=== PATIENT | male | born 1985 | race African-American/Black ===

== ENCOUNTER 2020-08-29 23:00 | Observation (INO) | payer BC ==
[2020-08-29] MEDS ORDERED: Boostrix 0.5 ML (Tdap) VIAL ONE (23:46)
[2020-08-29] MEDS ORDERED: Ketorolac Tromethamine 30 MG/ML VIAL ONE (23:57)
[2020-08-29] MEDS ORDERED: Gentamicin 80 MG/2 ML VIAL ONE (23:57)
[2020-08-30] MEDS ORDERED: Bupivacaine 0.5% 10 ML VIAL ONE (00:55)
[2020-08-30] MEDS ORDERED: Gentamicin Sulfate 80 MG in Premix Bag 1 BAG IVPB SCH (01:15)
[2020-08-30] MEDS ORDERED: HYDROcodone/Acetaminophen 5/325 mg Tablet PO PRN (01:41)
[2020-08-30] MEDS ORDERED: Promethazine HCl 25 MG/ML VIAL IM PRN ×2 (01:41→11:41)
[2020-08-30] MEDS ORDERED: Fentanyl 100 MCG/2 ML VIAL SLOW IVP PRN (01:41)
[2020-08-30] MEDS ORDERED: traMADol HCl 50 MG TAB PO PRN (01:41)
[2020-08-30] MEDS ORDERED: Morphine 2 MG/ML VIAL SLOW IVP PRN (01:41)
[2020-08-30] MEDS ORDERED: Ondansetron PF 4 MG/2 ML Vial SLOW IVP PRN (01:41)
[2020-08-30] MEDS ORDERED: Acetaminophen 325 MG TAB PO PRN (01:41)
[2020-08-30] MEDS ORDERED: Communication Order-Pharmacy FS SCH (01:45)
[2020-08-30] MEDS ORDERED: Vancomycin 1 GM in Premix Bag 1 BAG IVPB SCH (01:45)
[2020-08-30] MEDS ORDERED: Meperidine HCl/PF 25 MG/ML VIAL IM PRN (01:45)
[2020-08-30] MEDS ORDERED: TETANUS AND DIPHTHERIA TOX/PF 0.5 ML DISP.SYRIN IM SCH (01:45)
[2020-08-30] MEDS ORDERED: Ketorolac Tromethamine 30 MG/ML VIAL IVP PRN (01:45)
[2020-08-30] MEDS: Sodium Chloride 0.9% 1,000 ML IV SCH ×2 (03:49→12:37)
[2020-08-30 04:23] LABS: SARS-CoV-2 NAA Rapid Test Not Detected (NotDetected)
[2020-08-30] MEDS ORDERED: Aspirin 81 mg Enteric Coated Tablet PO SCH (09:00)
[2020-08-30] MEDS ORDERED: Bupivacaine PF 0.5% 30 ML VIAL ONE (11:34)
[2020-08-30] MEDS ORDERED: Sodium Chloride 0.9% 10 ML ONE (11:34)
[2020-08-30] MEDS ORDERED: Bacitracin Zinc Ointment 30 gm TUBE ONE ×2 (11:34→14:17)
[2020-08-30] MEDS ORDERED: Fentanyl 100 MCG/2 ML VIAL ONE ×2 (11:39→12:24)
[2020-08-30] MEDS ORDERED: Ondansetron HCl/PF 4 MG/2 ML Vial IVP PRN (11:41)
[2020-08-30] MEDS ORDERED: Promethazine HCl 25 MG/ML VIAL SLOW IVP PRN (11:41)
[2020-08-30] MEDS ORDERED: Midazolam HCl 2 mg/2 ml Vial SLOW IVP PRN (11:42)
[2020-08-30] MEDS ORDERED: Ondansetron PF 4 MG/2 ML Vial ONE (12:13)
[2020-08-30] MEDS ORDERED: Dexamethasone 20 MG/5 ML VIAL ONE (12:13)
[2020-08-30] MEDS ORDERED: PROPOFOL 200 MG/20 ML VIAL ONE (12:13)
[2020-08-30] MEDS ORDERED: Lidocaine 1% PF 5 ML VIAL ONE (12:13)
[2020-08-30] MEDS ORDERED: Ketorolac Tromethamine 30 MG/ML VIAL ONE (15:12)
[2020-08-30 16:15] VITALS: BP 145/97; TEMP 97.9
== END 2020-08-30 18:52 | disposition home or self-care (01) ==
LOC: ERS 23:00 → SURG A 08-30 00:04 → INTOOBSV 08-30 00:04
PROVIDERS: ADMIT Orthopaedic Surgery Hand Surgery; ATTEND Orthopaedic Surgery Hand Surgery
PROC: 0PST04Z Reposition Right Finger Phalanx with Internal Fixation Device, Open Approach (ICD-10-PCS; principal; 2020-08-30)
DX: S67.190A Crushing injury of right index finger, initial encounter (principal); S62.610A Displaced fracture of proximal phalanx of right index finger, initial encounter for closed fracture; S60.410A Abrasion of right index finger, initial encounter; Z20.822 Contact with and (suspected) exposure to COVID-19; W27.8XXA Contact with other nonpowered hand tool, initial encounter
CPT/HCPCS: 76000; 90471; 90715; 96365; 96375; C1713; J0690; J1100; J1580; J1885; J2270; J2405; J2704; J3010; J3490; S0020; U0002